=== PATIENT | female | born 1990 | race Two or more races ===

== ENCOUNTER 2016-07-19 20:48 | Outpatient (CLI) | payer OTHER ==
[~2016-07-19 20:48] MED LIST: CYCL10TA PO; IMIT50TA PO; ZOFR20TA PO
--- NOTE | 2016-07-19 23:50 | REPUSA ---
CLINICAL HISTORY: IUGR, decreased movement. This exam is requested to evaluate well bein g. TECHNIQUE: Realtime sonographic images were obtained in multiple projections. COMMENTS: Compared to 07/09/16 study. Single, live, intrauterine fetus in a lillie breech position. Biophysical score is 8 out of 8. Amnio tic fluid index is 8.2 cm. heart motion is present,157 beats per minute. Amniotic fluid volume is subjectively lower limit of normal. The placenta is anterior, without evide nce of previa or abruption. Placenta shows grade 1 changes. S/D ratio of the umbilical cord is slightly elevated at 3.42. Anatomical survey is not performed at this time. S/D ratio of the MCA is 3.79 (increased diastolic flow c/w mild brain sparing) for a MCA/UA ratio of 1.11. Continue with close followup. Doppler study: Umbulical Mid Cord: PSV 47.9 cm/s, EDV 14.0 cm/s S/D 3.42 RI 0.71 Middle cerebral Artery: PSV 30.3 cm/s, EDV 8.0 cms/s S/D: 3.79 RI 0.74 Med PSV 49.0 cm/s, MOM 0.62 IMPRESSION: Single, live, intrauterine fetus in a lillie breech position. Biophysical score is 8 out of 8. D ratio of the MCA is 3.79 (increased diastolic flow c/w mild brain sparing) for a MCA/UA ratio of 1 .11. Continue with close followup. Thank you for your kind referral of this patient. We appreciate the opportunity to participate in thi s patient's care.
== END 2016-07-19 23:30 | disposition home or self-care (01) ==
LOC: M LDO 20:48
PROVIDERS: ATTEND Advanced Practice Midwife
DX: O36.8130 Decreased fetal movements, third trimester, not applicable or unspecified (principal); O32.1XX1 Maternal care for breech presentation, fetus 1; O28.3 Abnormal ultrasonic finding on antenatal screening of mother; Z3A.34 34 weeks gestation of pregnancy

== ENCOUNTER → 2016-07-22 | Outpatient (CLI) | payer OTHER ==
--- NOTE | 2016-07-22 20:41 | REP ---
Clinical: Growth evaluation . Comparison: 07/19/2016 . Findings: Examination demonstrates a single live intrauterine in breech presentation. motion is identified by technologist. Placenta is noted anteriorly and grade one without evidence for placenta previa or abruption. Amniotic fluid volume is normal. Cervix measures 3.5 cm in length and appears closed. Nuchal cord cannot be excluded . Gestational age by LMP 32 weeks 5 days with ALEXIS 08/29/2016 . Gestational age by current measurements 30 weeks 2 days with ALEXIS 09/15/2016 . FHR equals 147 beats per minute. BPD 7.7 30 weeks 6 days HC 28.5 31 weeks 2 days AC 26.0 30 weeks 1 day FL 5.8 cm 30 weeks 3 days HL 5.2 any weeks 3 days HC/AC ratio 1.11 Estimated weight 1569 grams ( less than 3rd percentile). Amniotic fluid index equals 10.7 cm (8.4 - 24.4). Impression: Single live intrauterine demonstrating decreased estimated weight below the 3rd percentile. Signed by Dayton Newton MD 07/22/2016 08:32 P
--- NOTE | 2016-07-24 11:22 | REP ---
FOLLOWUP OBSTETRICAL ULTRASOUND: CLINICAL: well being, decreased growth. COMPARISON: 07/19/2016, 07/10/2016. FINDINGS: Ultrasound examination demonstrates single live intrauterine in breech presentation. motion was identified by the technologist. Placenta is noted anterior and grade 0 without evidence for placenta previa or abruption. Amniotic fluid volume is within normal limits. Cervix measures 4.6 cm in length and appears closed. Gestational age by LMP 34 weeks 4 days with estimated date of delivery 08/29/2016. Gestational age by current measurements 32 weeks 0 days with estimated date of delivery 09/16/2016. heart rate (FHR) 163 beats per minute. BPD 8.2 cm 33 weeks 1 day HC 29.9 cm 33 weeks 1 day AC 27.3 cm 31 weeks 3 days FL 6.0 cm 31 weeks 2 days HL 5.4 cm 31 weeks 2 days HC/AC ratio 1.09. Estimated weight 1811 grams (less than 3rd percentile based on age by LMP). Amniotic fluid index (KODI) equals 11.2 cm (8.0 - 24.9). Biophysical profile score equals 8 out of 8. Umbilical cord S/d ratio equals 3.08 (2.00 - 3.00). Middle cerebral artery S/d ratio equals 5.80. IMPRESSION: Single live intrauterine in breech presentation demonstrating less than expected interval growth. Correlation is recommended. Unreviewed
== END | disposition home or self-care (01) ==
LOC: M RAD 10:51
PROVIDERS: ATTEND Obstetrics & Gynecology
DX: O36.5931 Maternal care for other known or suspected poor fetal growth, third trimester, fetus 1 (principal); Z36 Encounter for antenatal screening of mother; Z3A.32 32 weeks gestation of pregnancy; O32.1XX0 Maternal care for breech presentation, not applicable or unspecified

== ENCOUNTER → 2016-07-31 | Outpatient (CLI) | payer OTHER ==
--- NOTE | 2016-07-31 11:21 | REP ---
Clinical: Biophysical profile. Comparison: 07/22/2016. Findings: Single live A advanced gestation in cephalic presentation. motion was identified by technologist. Placenta is again noted anteriorly and grade II without evidence for placenta previa or abruption. No evidence for nuchal cord. Gestational age by LMP 35 weeks 6 days with estimated date of delivery 08/29/2016. heart rate equals 126 beats per minute. Biophysical profile score equals 8/8. Amniotic fluid index equals 9.0 cm (7.7 - 24.9) Umbilical cord SD ratio equals 2.97 (2.00 - 3.00). Impression: Live advanced gestation in cephalic presentation. Biophysical profile score equals 8/8. Signed by Dayton Newton MD 07/31/2016 11:13 A
== END | disposition home or self-care (01) ==
LOC: M RAD 10:32
PROVIDERS: ATTEND Obstetrics & Gynecology
DX: O36.5931 Maternal care for other known or suspected poor fetal growth, third trimester, fetus 1 (principal); Z3A.35 35 weeks gestation of pregnancy; Z36 Encounter for antenatal screening of mother

== ENCOUNTER → 2016-08-06 | Outpatient (CLI) | payer OTHER ==
[~2016-08-06] MED LIST changes: +ACET50TA PO; +FLINCHW PO; +IBUP-1114 PO; +PRENTAB9 PO; +PRIL20CA9 PO
--- NOTE | 2016-08-06 12:19 | REP ---
OBSTETRIC SONOGRAPHY: HISTORY: Supervision of . growth study. FINDINGS: Scanning through the gravid uterus demonstrates a viable single intrauterine gestation in a cephalic lie. motion is observed and heart rate is recorder 144 beats per minute. An anterior grade 0 placenta is seen without evidence of previa or abruption. Amniotic fluid appears subjectively low. No extrauterine abnormalities observed. There has been less than expected interval growth of the fetus. Scan quality is inhibited by advanced gestational age and crowding. The cranium, four-chamber heart, left ventricular outflow tract view, diaphragm, three-vessel cord, kidneys and bladder are seen today. S/D ratio in the umbilical cord artery by Doppler is normal at 2.24. Biophysical profile score is 8 out of a possible 8. KODI is low at 6.1 cm (7.6 to 24.6 cm). BIOMETRY CHART: BPD 8.0 cm = 32 weeks 2 days HC 29.8 cm = 33 weeks 0 days AC 29.8 cm = 33 weeks 6 days FL 6.4 cm = 33 weeks 0 days HL 5.5 cm = 32 weeks 0 days HC/AC ratio normal 1.0. Cephalic index normal 0.75. Estimated weight 2174 grams, 4 pounds 12 ounces, less than 3rd percentile for 36 weeks 5 days. IMPRESSION: Viable single intrauterine gestation at 32-week 6 days by today's composite sonographic criteria. Expected gestational age estimate based on prior sonography is 35 weeks 4 days. There is less than expected interval growth in the fetus. ALEXIS by prior sonography September 06, 2016. Estimated weight less than 3rd percentile. Oligohydramnios. Signed by Haider Angulo MD 08/06/2016 03:09 P
== END | disposition home or self-care (01) ==
LOC: M RAD 10:20
PROVIDERS: ATTEND Obstetrics & Gynecology
DX: O36.5933 Maternal care for other known or suspected poor fetal growth, third trimester, fetus 3 (principal); Z3A.32 32 weeks gestation of pregnancy; Z36 Encounter for antenatal screening of mother

== ENCOUNTER 2016-08-08 06:15 | Inpatient (IN) | payer OTHER ==
[~2016-08-08] VITALS: Ht 160 cm; Wt 95.0 kg
[2016-08-08] VITALS (29 sets, daily range): BP systolic 101–150; BP diastolic 55–96
[~2016-08-08 06:15] MED LIST changes: -ACET50TA PO; -IBUP-1114 PO; -PRENTAB9 PO
[2016-08-08] MEDS ORDERED: LR 1,000 ML IV SCH (08:15)
[2016-08-08] MEDS ORDERED: LACTATED RINGER'S 1000 ML IV STA (08:15)
[2016-08-08 08:45] LABS: MEAN CORPUSCULAR HEMOGLOBIN 29.4 pg (27.0-33.0); MEAN CORPUSCULAR HGB CONC 34.1 g/dl (32.0-36.5); MEAN CORPUSCULAR VOLUME 86.3 fl (80.0-96.0); WHITE BLOOD COUNT 10.6 K/mm3 (4.0-10.0)
[2016-08-08] MEDS ORDERED: miSOPROStol 25 MCG 1/4 TAB (S0191) PV ONE (09:00)
[2016-08-08] MEDS ORDERED: OXYTOCIN DRIP 30 UNITS in APPROPRIATE DILUENT 1 EA IV SCH ×2 (15:00→22:45)
[2016-08-08] MEDS ORDERED: FENTANYL 2MCG/ML ROPIVACAINE 0.2% NACL 250 ML CADD As Ordered ONE (18:14)
[2016-08-08] MEDS ORDERED: EPIDURAL COMMENT XX SCH (19:00)
[2016-08-08] MEDS ORDERED: EPIDURAL/PCA KEYS XX PRN (19:00)
[2016-08-08] MEDS ORDERED: ePHEDrine SULFATE 25 MG/5 ML(5MG/ML) SYRINGE IV PRN (19:00)
[2016-08-08] MEDS ORDERED: FENTANYL/ROPIVACAINE/NACL CADD 250 ML EPIDURAL SCH (19:00)
[2016-08-08] MEDS ORDERED: REFRIGERATOR IV KEYS XX PRN (19:00)
[2016-08-08] MEDS ORDERED: NALOXONE INJ 0.4 MG/1 ML VIAL (J2310) IV PRN (19:00)
[2016-08-08] MEDS ORDERED: diphenhydrAMINE INJ 50MG/ML VIAL (J1200) IV PRN (19:00)
[2016-08-08] MEDS ORDERED: ONDANSETRON 4MG/2ML VIAL (J2405) IV PRN ×2 (19:00→22:45)
[2016-08-08] MEDS ORDERED: LACTATED RINGER'S 1000 ML IV PRN (19:00)
[2016-08-08] MEDS ORDERED: DOCUSATE SODIUM 100 MG CAP PO PRN (22:45)
[2016-08-08] MEDS ORDERED: PROMETHAZINE 25 MG TAB PO PRN (22:45)
[2016-08-08] MEDS ORDERED: RHOGAM 300 MCG (1500 IU) INJ (J2790) IM SCH (22:45)
[2016-08-08] MEDS ORDERED: ACETAMINOPHEN 500 MG TAB PO PRN (22:45)
[2016-08-08] MEDS: LR 1,000 ML IV SCH (22:45)
[2016-08-08] MEDS ORDERED: MEASLES,MUMPS,RUBELLA VACCINE INJ (MMR-II) (90707) SC SCH (22:45)
[2016-08-09 01:34] VITALS: BP 124/81
[2016-08-09 05:55] VITALS: BP 108/59
[2016-08-09] MEDS: LR 1,000 ML IV SCH (06:45)
[2016-08-09] MEDS: PRENATAL VITAMIN TAB PO SCH (08:48)
[2016-08-09] MEDS: IBUPROFEN 800 MG TAB PO PRN ×2 (08:51→17:46)
[2016-08-09 18:18] VITALS: BP 123/72
[2016-08-10 06:26] VITALS: BP 130/91
[2016-08-10] MEDS: PRENATAL VITAMIN TAB PO SCH (07:29)
[2016-08-10] MEDS: IBUPROFEN 800 MG TAB PO PRN (07:30)
[2016-08-10] MEDS ORDERED: INFLUENZA QUADRIVALENT PF VACCINE 0.5ML SYRINGE/VIAL (90686) IM ONE (09:00)
[2016-08-10] MEDS ORDERED: PRENTAB9 PO (10:58)
[2016-08-10] MEDS ORDERED: ACET50TA PO (11:00)
[2016-08-10] MEDS ORDERED: IBUP-1114 PO (11:01)
== END 2016-08-10 11:50 | disposition home or self-care (01) | DRG 775 ==
LOC: M LDI 06:15 → M OBS 08-09 01:32
PROVIDERS: ADMIT Obstetrics & Gynecology; ATTEND Obstetrics & Gynecology
PROC: 10E0XZZ Delivery of Products of Conception, External Approach (ICD-10-PCS; principal; 2016-08-08)
PROC: 3E0P7GC Introduction of Other Therapeutic Substance into Female Reproductive, Via Natural or Artificial Opening (ICD-10-PCS; 2016-08-08)
DX: O36.5920 Maternal care for other known or suspected poor fetal growth, second trimester, not applicable or unspecified (principal); Z3A.37 37 weeks gestation of pregnancy; Z37.0 Single live birth

== ENCOUNTER 2017-02-13 18:08 | Emergency (ER) | payer OTHER ==
[~2017-02-13] VITALS: Ht 160 cm; Wt 108.2 kg
[~2017-02-13 18:08] MED LIST changes: +ACET50TA PO; +IBUP-1114 PO; +PRENTAB9 PO
[2017-02-13] MEDS ORDERED: PROZ20CA11 PO (18:26)
[2017-02-13] MEDS ORDERED: CLON1TAB PO (18:26)
[2017-02-13] MEDS ORDERED: KETOROLAC 60 MG/2 ML VIAL (J1885) IM ONE (19:00)
[2017-02-13] MEDS ORDERED: ONDANSETRON 4 MG ORAL DISINTEGRATING TAB (S0181) PO ONE (19:00)
[2017-02-13 20:08] LABS: CONTROL LINE UCG INT CTR LINE PRESENT
[2017-02-13] MEDS ORDERED: ZOFR4TAB3 PO (20:54)
[2017-02-13] MEDS ORDERED: CYCL10TA PO (20:54)
[2017-02-13] MEDS ORDERED: NAPR500T PO (20:54)
[2017-02-13 21:01] VITALS: BP 137/69
== END 2017-02-13 21:03 | disposition home or self-care (01) ==
LOC: M ED 18:08
DX: G89.29 Other chronic pain (principal); M54.5 Low back pain; R11.2 Nausea with vomiting, unspecified; F99 Mental disorder, not otherwise specified; Z88.8 Allergy status to other drugs, medicaments and biological substances; Z91.018 Allergy to other foods; Z79.899 Other long term (current) drug therapy
CPT/HCPCS: 81001; 81025; 84703; 96372; 99283; J1885

== ENCOUNTER → 2017-04-06 | Outpatient (CLI) | payer OTHER ==
[~2017-04-06] MED LIST changes: +CLON1TAB PO; +METHACHOLINE KIT (J7674) INH ONE; +NAPR500T PO; +PROZ20CA11 PO; +ZOFR4TAB3 PO
--- NOTE | 2017-04-06 14:41 | PFTRPT ---
Tech: Elijah JOHNSON RRT Age: 26 Sex: Female Race: <Unspecified> Height: 64.00 Inches Weight: 243.00 Lbs BSA: 2.12 Diagnosis: R06.02 METHACHOLINE CHALLENGE REPORT: ORDERING PROVIDER: Rodolfo Neri MD DATE OF SERVICE: 04/06/17 INTERPRETATION: The study was of excellent technical quality. Under protocol, methacholine was administered. At a dose of 2.5 mg (13.875 CDUs), a 24% decline in the FEV1 was noted. The PC20 of 1.5 is significant. Flow rates returned to baseline post bronchodilator administration. IMPRESSION: Positive methacholine challenge study. MTDD
== END ==
LOC: M CARPUL 12:49
PROVIDERS: ATTEND Internal Medicine Pulmonary Disease
DX: R06.02 Shortness of breath (principal)